=== PATIENT | male | born 1960 | race Caucasian/White ===

== ENCOUNTER 2023-05-03 14:10 | Outpatient (CLI) | payer OTHER | END 2023-05-03 14:11 | disposition home or self-care (01) | LOC: CSHMRI 14:10 | PROVIDERS: ATTEND Psychiatry & Neurology Neurology | DX: M48.061 Spinal stenosis, lumbar region without neurogenic claudication (principal); Q76.49 Other congenital malformations of spine, not associated with scoliosis; M51.36 Other intervertebral disc degeneration, lumbar region; M47.816 Spondylosis without myelopathy or radiculopathy, lumbar region | CPT/HCPCS: 72148 ==